=== PATIENT | male | born 2000 | race Caucasian/White ===

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

== ENCOUNTER 2019-09-23 11:42 | Inpatient (IN) | payer OTHER ==
[~2019-09-23] VITALS: Ht 165.1 cm; Wt 88.5 kg
[~2019-09-23 11:42] MED LIST: BENZTROPINE MESY1 MG PO; DIVALPROEX SOD250 M2 PO; ESCITALOPRAM10 M1 PO; OLANZAPINE20 M1 PO; SEROQUEL XR50 MG PO
[2019-09-23 11:49] VITALS: Ht 165.1 cm; Wt 88.5 kg
[2019-09-23 12:27] LABS: BASOPHIL % 0.9 % (0-2); PLATELET COUNT 279 x10^3mcL (130-400); RED CELL DISTRIBUTION WIDTH 12.5 % (11.5-14.5)
[2019-09-23 12:34] LABS: CALCIUM 9.7 mg/dL (8.5-10.1); CHLORIDE SERUM 99 mmol/L (98-107); CREATININE SERUM 1.1 mg/dL (0.7-1.3); GFR1 > 60 mL/min; GLUCOSE SERUM 123 mg/dL (74-106); POTASSIUM SERUM 3.3 mmol/L (3.5-5.1); SODIUM SERUM 136 mmol/L (136-145)
[2019-09-23 12:38] LABS: ALBUMIN 4.2 g/dL (3.4-5.0); ALKALINE PHOSPHATASE 95 U/L (46-116); ALT/SGPT 30 U/L (16-63); AST/SGOT 12 U/L (15-37); BILIRUBIN TOTAL 0.76 mg/dL (0.20-1.00); TOTAL PROTEIN, SERUM 8.2 g/dL (6.4-8.2)
--- NOTE | 2019-09-23 12:45 | NUR ---
PT BIB MOM FOR SI. PT REPORTED "I JUST DON'T WANT TO BE HERE ANYMORE." ASKED PT IF HE WANTS TO HARM HIMSELF, HE REPLIED "NO". ASKED PT IF HE HAS A PLAN TO HURRT HIMSELF HE SAID "NO". PT REPORTED FEELING "SAD." PER MOM PT "HEARS VOICES AND TALKS TO HIMSELF A LOT. HE DOES NOT ALWAYS TAKE HIS MEDS." PT IS AAOX4, PT IS CALM BUT DOES NOT ANSWER ALL QUESTIONS. PT DOES DOES NOT MAKE EYE CONTACT, DENIES HEARING ANY VOICES AT THIS TIME. NO DISTRESS NOTED, RESP E/U, LUNG CTA, SCABBED ABRASION NOTED TO RIGHT WRIST X1 DAY S/P USING HIS OWN NAIL TO SCRATCH HIMSELF PER PT. MSE COMPLETED BY MOM.
--- NOTE | 2019-09-23 13:14 | NUR ---
PSYCH TELE CONSULT IN PROGRESS AT THE BEDSIDE.
[2019-09-23 14:03] LABS: microscopic required? YES; urine erythrocyte NEGATIVE (NEGATIVE)
[2019-09-23 14:25] LABS: AMPHETAMINE QUAL UR NONE DETECTED (See below)
--- NOTE | 2019-09-23 14:55 | NUR ---
PT LAYING IN POSITION OF COMFORT, NO DISTRESS NOTED, RESP E/U. PT DENIES ANY PAIN. PT IS AAOX4. PT NOTED CALM. PT WILL NOT ANSWER QUESTIONS WHEN ASKED. PT IN VIEW OF THE NURSE STATION, SI PRECUATIONS IN PLACE.
--- NOTE | 2019-09-23 16:40 | NUR ---
PT ASKED TO CALL MOM. DIALED MOM'S NUMBER AND HANDED PHONE TO PATIENT.
--- NOTE | 2019-09-23 17:00 | NUR ---
PT NOTED SLEEPING, RESP E/U, NO DISTRESS NOTED. PT IN VIEW OF THE NURSE STATION. WILL CONT TO MONITOR.
--- NOTE | 2019-09-23 17:39 | NUR ---
No beds available during day shift. Will endorse to oncoming shift to continue assisting with bed placement
--- NOTE | 2019-09-23 18:30 | NUR ---
GAVE PT A SANDWICH AND WATER.
--- NOTE | 2019-09-23 19:10 | NUR ---
REPORT GIVEN TO SHAKIR AGUILAR WHO WILL ASSUME FURTHER CARE OF THIS PATIENT.
--- NOTE | 2019-09-24 00:04 | NUR ---
NAD NOTED - ABCS INTACT WITH RESPIRATIONS NOTED TO BE EVEN AND UNLABORED - PT RESTING WITH EYES CLOSED - PT REMAINS SAFE AND IN VIEW OF NURSING STATION.
--- NOTE | 2019-09-24 03:01 | NUR ---
NAD NOTED - ABCS INTACT WITH RESPIRATIONS NOTED TO BE EVEN AND UNLABORED - PT RESTING WITH EYES CLOSED - PT NOTED TO HAVE EATEN PART OF THE MEAL PROVIDED - PT REMAINS SAFE AND IN VIEW OF NURSING STATION.
--- NOTE | 2019-09-24 06:10 | NUR ---
PT PROVIDED ICE WATER
--- NOTE | 2019-09-24 09:02 | NUR ---
CLIENT RESTING AT THIS TIME,AWAKEN FOR ASSESSMENT & VITALS DENIES PAIN,CALM,COOPERATIVE.
--- NOTE | 2019-09-24 11:40 | NUR ---
MEDS GIVEN,TOLERATED WELL,VITAL SIGNS ARE SIGN.
--- NOTE | 2019-09-24 12:25 | NUR ---
LUNCH TRAY GIVEN.
--- NOTE | 2019-09-24 14:20 | NUR ---
CLIENT HAD LUNCH CONSUMED 85% OF MEAL,WENT BACK TO SLEEP,CALM AND COOPERATIVE
[2019-09-24 16:45] LABS: FREE T4 1.39 ng/dL (0.76-1.46); FREE THYROXINE INDEX 3.9 ug/dL (1.4-4.5); T4(THYROXINE) 10.3 ug/dL (4.7-13.3)
--- NOTE | 2019-09-24 17:05 | NUR ---
PT SEEN GETTING OOB & WALKING DOWN [place]. TOLD PT HE PASSED THE BATHROOM, PT KEPT WALKING, PT WENT TO EXIT THEN STARTED RUNNING OUT THE ER LOBBY. I TOLD SECURITY @ TENT THAT PT WAS 5150 HOLD. HE USED RADIO TO CALL PBX TO CALL JUANCARLOS TERRAZAS. PT RAN AWHILE EAST DOWN [place] ON [address] THEN STARTED WALKING HE TIRED. NOMAN RN & SHERON RN GOING BEHIND PT TO MONITOR.
--- NOTE | 2019-09-24 17:16 | NUR ---
JUANCARLOS TERRAZAS FOUND PT A MERE BLOCK DOWN [facility] LINE. SHERON RN & NOMAN RN WERE BEHIND PT & HAD HIM IN VISUALIZATION THE WHOLE TIME HE WAS OUTSIDE. PD DROVE PT BACK IN THEIR CAR, HANDCUFFED, & PT RETURNED TO BED 8. SECURITY @ BEDSIDE. PT PLACED IN 4 POINT RESTRAINTS.
--- NOTE | 2019-09-24 17:20 | NUR ---
1710 CLIENT ELOPED,SAID HE "WANTED TO GO TO THE BATHROOM" AND KEPT GOING,LEFT FACILITY,PD CALLED,PD BROUGHT PATIENT BACK TO FACILITY @ 1719 CLIENT PLACED ON RESTRAINTS UPPER EXTREMITIES.
--- NOTE | 2019-09-24 17:35 | NUR ---
ALESSANDRA CHERRY WENT TO SEE IF PT WANTED HIS DINNER. HE TOLD HIM HE WANTED TO GO UPSTAIRS & TO SHOWER. HE TOOK ONE BITE OF VEGETABLES, SPIT IT OUT, & REFUSED TO EAT ANYTHING ELSE. WRIST RESTRAINT REAPPLIED.
[2019-09-24 17:42] LABS: T3 TOTAL 0.92 ng/mL
--- NOTE | 2019-09-24 19:29 | NUR ---
PT SITTING UP IN BE RESTING QUIETLY. PT HAS NO COMPAINT AT THIS TIME. PT REMAIN VISIBLE. ALL SAFETY MEASURES MAINTAINED. PT ALERT AND ORIENTED X3
--- NOTE | 2019-09-24 21:40 | NUR ---
PT RESTRAINTS REMOVED. PT STATES HE WILL NOT ATTEMPT TO ESCAPE HOSPITAL.
--- NOTE | 2019-09-24 22:48 | NUR ---
PT IN BED SLEEPING AT THIS TIME. ALL RESTRAINTS CURRENTLY REMOVED
--- NOTE | 2019-09-24 23:23 | NUR ---
I WALKED BY PT IN ED BED 8, PT STANDING NEXT TO ZURI SHIFTING WEIGHT FROM FOOT TO FOOT. I APPROACHED PATIENT AND PATIENT ASKED TO USE RESTROOM. I ESCORTED TO THE PATIENT TO THE RESTROOM ACCROSS FROM ED TRIAGE ROOM 10. PT CONTINUED TO WALK PAST THE RESTROOM AND OUT THE EXIT DOOR. PT AMBULATED THROUGH THE LOBBY AND INTO THE PARKING LOT. WHEN THE PATIENT REACHED THE PARKING LOT HE TURNED AROUND. PT VERBALLY ENCOURAGED TO RETURN TO THE TREATMENT AREA. PT AMBULATED BACK INTO TREATMENT AREA AND RETURNED TO ED BED 8. PRIMARY RN DICK AT BEDSIDE WITH PATIENT AT THIS TIME.
--- NOTE | 2019-09-24 23:34 | NUR ---
PT RAN OUT OF FACILITY WITH HOSPITAL GOWN ON AFTER RESTRAINTS WERE REMOVED PT SEEN RUNNING UP . PD NOTIFIED.
--- NOTE | 2019-09-24 23:43 | NUR ---
PT BROUGHT BACK TO FACILITY BY PD. PT PLACED BACK IN BED WITH 2 POINT RESTRAINTS.
--- NOTE | 2019-09-25 01:30 | NUR ---
PT IN BED SLEEPING AT THIS TIME. 2 POINT RESTRAINTS ACTIVE.
--- NOTE | 2019-09-25 03:30 | NUR ---
PT RESTRAINTS REMOVED AND ASSESSED. 2 POINT RESTRAINTS REAPLLIED. FOR PATIENT'S SAFETY.
--- NOTE | 2019-09-25 05:40 | NUR ---
PT AWAKEN FOR BATHROOM BREAK AND REFRESHMENTS
--- NOTE | 2019-09-25 06:48 | NUR ---
HEARD VELCRO REMOVAL SOUND I WALKED BY BED8. PT SEEN REMOVING LEFT UPPER EXTREMITY RESTRAINT WITH HIS TEETH. INSTRUCTED PT TO STOP REMOVING HIS RESTRAINTS. PT LAID BACK DOWN. PT LEFT RESTRAINT PLACED BACK ON. PT COOPERATIVE WHEN PLACING RESTRAINT BACK ON. PRIMARY RN DICK AT BEDSIDE WELL, EDUCATING PT REGARDING RESTRAINTS. PT REMAINS QUIET AT THIS TIME.
--- NOTE | 2019-09-25 07:45 | NUR ---
FIRST CONTACT WITH PT. FOUND SLEEPING IN BED. BILATERAL VELCROVE RESTRAINTS INTACT. HAND WITH GOOD CIRCULATION.
--- NOTE | 2019-09-25 08:35 | NUR ---
SPOKE WITH NURSING PLAYER PIANO TECHNICIAN, NO SITTERS AVAILBLE TO SIT WITH PT ON 2ND FLOOR.
--- NOTE | 2019-09-25 09:40 | NUR ---
medicated as ordered with Liz rivera. pt is quiet. non combative at this time.
--- NOTE | 2019-09-25 11:00 | NUR ---
CONTINUES TO SLEEP SOUNDLY AT THIS TIME RESPS NON LABORED
--- NOTE | 2019-09-25 12:42 | NUR ---
STILL NON VERBAL. AMONIA INHALANT USED, PT RESPONDED AND OPENED EYES. FELL BACK TO SLEEP. CHARGE NURSE AWARE.
--- NOTE | 2019-09-25 12:52 | NUR ---
FOOD TRAY BROUGHT TO PT, BUT DIFFICULT TO AROUSE, AMMONIA INHALANT USED PT DID WAKE UP BUT HE ISNT COOPERATIVE, I OFFERED TO HAVE HIM FED BY JO ANN MORALES BUT PT WOULD NOT OPEN HIS MOUTH, HIS EYES WERE OPEN, PT REMAINS ON CRISTAL HAND RESTRAINTS, I REMOVED BOTH HAND RESTRAINTS TO CHECK SKINS AND I NOTICED AN ABRASION NOTED ON RIGHT INNER WRSIT. I INFORMED DR HUMPHREY ORDERS TO CLEAN IT AND APPLY A DRY BANDAIDE.
--- NOTE | 2019-09-25 13:17 | NUR ---
continues to sleep, awakened for lunch.
--- NOTE | 2019-09-25 13:21 | NUR ---
took a few spoonfuls of soup and half of apple juice. (spoon fed).
--- NOTE | 2019-09-25 13:25 | NUR ---
mental health doctor here and saw pt.
--- NOTE | 2019-09-25 14:51 | NUR ---
VELCROVE WRIST RESTRAINTS REMOVED, WAS RECEPTIVE TO WALKING TO REST ROOM AND GIVING HIMSELF A SMALL SPONGE BATH. GAIT WAS STEADY. UPON RETURNING OFFERED JUICE AND H2O, DID NOT WANT ANY.
--- NOTE | 2019-09-25 14:56 | NUR ---
FOUND PT TRYING TO REMOVE VELCROVE WRIST RESTRAINTS WITH MOUTH. PT TALKED DOWN. STATED: I WANT TO VISIT MY MOM. EXPLAINED TO PT THAT DUE TO THE PANDEMIC, VISITORS AREN'T ALLOWED.
--- NOTE | 2019-09-25 15:01 | NUR ---
SPOKE WITH NURSING NON LICENSED OPERATOR WHO STATES THAT AT 7PM, THERE WAS A SITTER AVAIL- ABLE.
--- NOTE | 2019-09-25 15:08 | NUR ---
PT SELF REMOVED RESTRAINTS, TRIED TO LEAVE, WAS PHYSICALLY STOPPED. WAS PHYSI CALLLY STOPPED. FORCED BACK TO ZURI. REMINDED HIS MOTHER COULDN'T VISIT DUE TO THE PANDEMIC
--- NOTE | 2019-09-25 15:50 | NUR ---
VELCROVE WRIST RESTRAINTS ON. HAS GOOD CIRCULATION. SLEEPS. LOW KEYED AT THIS TIME
--- NOTE | 2019-09-25 16:05 | NUR ---
GREY KEYED A THIS TIME. STARES OUT. NON VERBAL.
--- NOTE | 2019-09-25 18:56 | NUR ---
REMAINS LOW KEYED AT THIS TIME. LEFT UNDISTURBED.
--- NOTE | 2019-09-25 18:59 | NUR ---
REPORT GIVEN TO TRAIN CALLER STAFF. REMAINS LOW OAKES
--- NOTE | 2019-09-25 19:03 | NUR ---
REPORT RECEIVED FROM LAUREN MACIEL.
[2019-09-25] MEDS ORDERED: SERTRALINE H20 MG/ML (19:12)
[2019-09-25] MEDS ORDERED: ZIPRASIDONE HCL40 M1 (19:12)
[2019-09-25] MEDS ORDERED: DEPAKOTE SPRIN125 MG (19:12)
[2019-09-25] MEDS ORDERED: BENZTROPINE ME0.5 MG (19:12)
--- NOTE | 2019-09-25 19:18 | NUR ---
PATIENT IN GURNEY, IN BILATERAL UPPER EXTREMITY SOFT RESTRAINTS. PATIENT IS RESTLESS, ATTEMPTING TO GET OUT OF GURNEY. PATIENT RE-ORIENTED, ENVIRONMENTAL STIMULUS DECREASED. PMSC INTACT TO BILATERAL UPPER EXTREMITIES. PT OFFERED TOILETING, NAD NOTED. PT REMAINS IN DIRECT SIGHT OF NURSES'S STATION FOR SAFETY.
--- NOTE | 2019-09-25 19:36 | NUR ---
RESTRAINT RENEWAL PLACED IN CHART.
--- NOTE | 2019-09-25 20:34 | NUR ---
PATIENT REQUESTING TO USE THE RESTROOM, PROVIDED WITH URINAL AND REMOVED RESTRAINTS FOR BATHROOM PRIVELEGES BY JO ANN MORALES. PATIENT UNABLE TO URINATE AT THIS TIME. WILL RE-ASSESS.
--- NOTE | 2019-09-25 20:42 | NUR ---
REPORT CALLED TO LAUREN ARAYA TO ASSUME CARE OF PT.
[2019-09-25 21:00] VITALS: BP 139/86
--- NOTE | 2019-09-25 21:43 | NUR ---
RECEIVED PT FROM ER, PT ADMIT FOR 5150 HOLD, SUICIDAL IDEATION. PT IS ALERT BUT MUTE. REFUSED TO TALK. REFUSE TO FOLLOW COMMAND. REFUSED ANSWER ALL THE QUESTIONS. PT ONLY TALKED " I WANT TO WATER'. THEN REFUSED TO TALK. LUNG SOUND CLEAR BILATERAL, NO COUGH, NO SOB. BOWEL SOUND PRESENT ALL 4 QUADRANTS, NO DISTENTION, NO TENDER. PEDAL PULSE PRESENT BOTH FEET, NO EDEMA, PT REFUSED IV. SITTER AT BED SITE. ALL ADLS ASSIST, ALL NEED MET, CALL LIGHT IN REACH, WILL CONTINUE TO MONITOR.
--- NOTE | 2019-09-25 21:50 | NUR ---
RECEIVED REPORT FROM BENNY PEREZ RN. PATIENT IS CURRENTLY CALM, BUE RESTRAINTS REMOVED FROM PATIENT, 1:[address]
--- NOTE | 2019-09-25 22:05 | NUR ---
PATIENT RESTING IN BED, CALM, ALERT BUT MUTE, REFUSES TO TALK. BREATHING E/U, ON ROOM AIR. SHOWS NO SIGN OF PAIN OR DISTRESS. ASKED PATIENT IF THEY WOULD LIKE TO TAKE THEIR SCHEDULED GEODON AND DEPAKOTE, PATIENT NODDED, WILL GIVE SCHEDULED MEDICATIONS PER EMAR. CALL LIGHT WITHIN REACH, BED IN LOWEST POSITION. WILL CONTINUE TO MONITOR.
--- NOTE | 2019-09-26 00:35 | NUR ---
PATIENT RESTING IN BED WITH EYES CLOSED. EVEN CHEST RISE AND FALL. SHOWS NO SIGN OF PAIN OR DISTRESS. CALL LIGHT WITHIN REACH, SITTER IN PLACE, WILL CONTINUE TO MONITOR.
--- NOTE | 2019-09-26 05:09 | NUR ---
There still no beds available at any of the designted facilities. Will endorse to incoming shift to seek further placement during their shift. Patients 5150 is set to later today at 16:01
[2019-09-26 06:30] VITALS: BP 134/92
--- NOTE | 2019-09-26 07:05 | NUR ---
RECIEVED PT RESTING IN BED WITH NO C/O PAIN OR DISTRESS. PT ON 5150 HOLD WITH SITTER AT BEDSIDE. PT ALERT BUT REFUSES TO RESPOND VERBALLY. LUNGS CTAB WITH NO SOB NOTED. NO IV ACCESS D/T PT REFUSAL, MD AWARE. SAFETY PRECAUTIONS IN PLACE, CALL LIGHT WITHN REACH, WILL MONITOR.
--- NOTE | 2019-09-26 07:18 | NUR ---
PATIENT RESTING IN BED WITH EYES CLOSED. EVEN CHEST RISE AND FALL. SHOWS NO SIGN OF PAIN OR DISTRESS. NO SIGNIFICANT CHANGES DURING SHIFT, CALL LIGHT WTIHIN REACH, 1:1 SITTER AND SAFETY PRECAUTIONS MAINTAINED THROUGHOUT SHIFT.
[2019-09-26 08:00] VITALS: BP 113/69
--- NOTE | 2019-09-26 11:50 | NUR ---
TELEPHONE ORDER RECIEVED FROM LIDA RICE FOR COVID TEST ON PT. TEST FOR TRANSFER TO PSYCH FACILITY, NO ISOLATION NEEDED. ORDER NOTED AND CARRIED OUT.
--- NOTE | 2019-09-26 12:01 | NUR ---
COVID-19 SPECIMEN TAKEN AND TURNED IN TO LAB.
--- NOTE | 2019-09-26 13:54 | NUR ---
PT RESTING IN BED WITH NO C/O PAIN OR DISTRESS. SITTER AT BEDSIDE. SAFETY PRECAUTIONS IN PLACE, CALL LIGHT WITHIN REACH, WILL MONITOR.
[2019-09-26 14:37] VITALS: BP 126/85
--- NOTE | 2019-09-26 14:47 | NUR ---
AT THIS TIME THERE ARE NO NEW UPDATES FOR BED PLACEMENT WILL CONT TO MONITOR AND ASSIST IN PLACEMENT
[2019-09-26 18:03] VITALS: BP 139/99
--- NOTE | 2019-09-26 18:29 | NUR ---
PT RESTING IN BED WITH NO C/O PAIN OR DISTRESS. PT ON 5150 HOLD WITH SITTER AT BEDSIDE. PT ALERT BUT REFUSES TO RESPOND VERBALLY. REFUSED TO EAT AND ALL ADL'S, DR PETTY MADE AWARE. LUNGS CTAB WITH NO SOB NOTED. NO IV ACCESS D/T PT REFUSAL, MD AWARE. SAFETY PRECAUTIONS IN PLACE, CALL LIGHT WITHN REACH, WILL ENDORSE CARE TO NIGHT NURSE.
--- NOTE | 2019-09-26 19:20 | NUR ---
RECEIVED PATIENT FROM DAY NURSE. MED-SURG PATIENT. PATIENT RESTING IN BED, ALERT, ONLY SELECTIVELY SPEAKS "I WANT TO CLEAN MY ARMS" OR "I WANT TO LOWER MY HEAD ON THE BED". CURRENTLY ON 5151 HOLD, ASKED PATIENT IF HE CURRENTLY HAS ANY SUICIDAL THOUGHTS OR THOUGHTS OF SELF-HARM AND HE SHOOK HIS HEAD IN RESPONSE TO BOTH QUESTIONS. BREATHING E/U, ON ROOM AIR. ABD SOFT AND ROUND, POOR APPETITE, OFFERED SANDWICHES AND OTHER SNACKS, PATIENT REFUSED. AMBULATORY. NO EDEMA NOTED. NO IV ACCESS AT THIS TIME, PATIENT REFUSED IV ACCESS AGAIN. DENIES PAIN. CALL LIGHT WITHIN REACH, BED IN LOWEST POSITION. WILL CONTINUE TO MONITOR.
--- NOTE | 2019-09-26 19:28 | NUR ---
[facility] hourly shift to continue actively working on finding placement for this pt. Will contact with any updates on placement. No openings per day shift report.
--- NOTE | 2019-09-26 20:00 | NUR ---
PATIENT STATED THAT THEY WISH TO "CLEAN THEIR ARMS", GAVE THE PATIENT RODRIGUEZ CLEANSING WIPES AND MILLING PLANER OPERATOR ASSISTED PATIENT.
[2019-09-26 21:55] VITALS: BP 126/83
--- NOTE | 2019-09-26 22:01 | NUR ---
PATIENT RESTING IN BED, BREATHING E/U, OFFERED SANDWICH AND MARCO CRACKERS TO PATIENT, PATIENT DID NOT SPEAK, PLACED SANDWICH AND MARCO CRACKAERS @ BEDSIDE IN CASE PATIENT WISHES TO EAT PATIENT ONLY ATE A SMALL PORTION OF DINNER. CALL LIGHT WITHIN REACH, WILL CONTINUE TO MONITOR.
--- NOTE | 2019-09-27 00:10 | NUR ---
PATIENT RESTING IN BED, WITH EYES CLOSED. EVEN CHEST RISE AND FALL. SHOWS NO SIGN OF PAIN OR DISTRESS. CALL LIGHT WITHIN REACH, SITTER IN PLACE. WILL CONTINUE TO MONITOR.
--- NOTE | 2019-09-27 00:45 | NUR ---
Followup calls to the following facilities regarding placement: [facility], [facility], [facility], [facility], [facility] No openings at this time. Will continue to follow up.
--- NOTE | 2019-09-27 06:11 | NUR ---
PATIENT RESTING IN BED WTIH EYES CLOSED. EVEN CHEST RISE AND FALL. SHOWS NO SIGN OF PAIN OR DISTRESS. NO SIGNIFICANT CHANGES DURING SHIFT, [address], ALL NEEDS MET, SAFETY PRECAUTIONS AND SITTER IN PLACE THROUGHOUT SHIFT.
[2019-09-27 06:35] VITALS: BP 122/77
--- NOTE | 2019-09-27 18:30 | NUR ---
Called facility spoke with Chandrika/RN she will fax updated hold. Throughout the day assessing bed placement there has been no bed availability. [facility]/ Sofia - No beds, they have information Jean Low/ Sena - No beds SAIDA/ Zack - Not today, has information JULIANNA/ Anitha Juarez we are full but we have the information Will keep facility updated with any information. Will endorse to next shift.
--- NOTE | 2019-09-27 18:43 | NUR ---
PT RESTING IN BED WITH NO C/O PAIN OR DISTRESS. PT ON 5150 HOLD WITH SITTER AT BEDSIDE. PT ALERT BUT REFUSES TO RESPOND VERBALLY. REFUSED TO EAT/DRINK AND ALL ADL'S ALL SHIFT, DR PETTY AND INSIDE PARTS SALES MADE AWARE. LUNGS CTAB WITH NO SOB NOTED. NO IV ACCESS D/T PT REFUSAL, MD AWARE. SAFETY PRECAUTIONS IN PLACE, CALL LIGHT WITHN REACH, WILL ENDORSE CARE TO NIGHT NURSE.
--- NOTE | 2019-09-27 19:25 | NUR ---
RECEIVED PATIENT FROM DAY NURSE. MED-SURG PATIENT. PATIENT RESTING IN BED, ALERT, CALM AND MUTE. CURRENTLY ON 5150 HOLD, WHICH WAS RENEWED YESTERDAY AND PLACED IN PATIENT CHART, SITTER IN PLACE, WHEN ASKED IF THE PATIENT HAD ANY THOUGHTS OF SUICIDE OR SELF-HARM, PATIENT SHOOK HIS HEAD. BREATHING E/U, ON ROOM AIR. ABD SOFT AND ROUND, DAY NURSE AND SITTER STATED THAT PATIENT HAS NOT EATEN ANYTHING FROM MEAL TRAYS AND ONLY DRANK WATER AND MILK DURING THE DAY, SANDWICH PROVIDED @ BEDSIDE. NO EDEMA NOTED. NO IV ACCESS @ THIS TIME, PATIENT REFUSED. WHEN ASKED IF HE FEELING PAIN, PATIENT SHOOK HIS HEAD. CALL LIGHT WITHIN REACH, BED IN LOWEST POSITION. WILL CONTINUE TO MONITOR.
[2019-09-27 22:02] VITALS: BP 131/86
--- NOTE | 2019-09-27 22:09 | NUR ---
DR. CORREA MADE AWARE THAT PATIENT'S REFUSAL TO EAT THE MEAL TRAYS DURING THE DAY AND THAT PATIENT HAS ONLY DRANK WATER AND MILK. HE STATED TO CHECK PATIENT'S BLOOD GLUCOSE.
--- NOTE | 2019-09-27 23:02 | NUR ---
PATIENT REFUSED ACCUCHECK. PATIENT RESTING IN BED, WITH EYES CLOSED. SHOWS NO SIGN OF PAIN OR DISTRESS. WILL NOTIFY DR. CORREA. CALL LIGHT WITHIN REACH, WILL CONTINUE TO MONITOR.
--- NOTE | 2019-09-28 00:10 | NUR ---
PATIENT RESTING IN BED WITH EYES CLOSED. EVEN CHEST RISE AND FALL. SHOWS NO SIGN OF PAIN OR DISTRESS. SITTER IN PLACE. CALL LIGHT WITHIN REACH, WILL CONTINUE TO MONITOR.
[2019-09-28 05:30] VITALS: BP 119/73
--- NOTE | 2019-09-28 06:00 | NUR ---
PATIENT RESTING IN BED WITH EYES CLOSED. EVEN CHEST RISE AND FALL. SHOWS NO SIGN OF PAIN OR DISTRESS. COVID-19 TEST RESULT NEGATIVE, PENDING PSYCH FACILITY PLACEMENT, 5150 HOLD RENEWED ON 09/25 1829, WILL ENDORSE CARE TO DAY NURSE. CALL LIGHT WITHIN REACH, 1:1 SITTER AND SAFETY PRECAUTIONS MAINTAINED THROUGHOUT SHIFT.
--- NOTE | 2019-09-28 07:30 | NUR ---
PT SITTING UP IN BED. SLEEPING COMFORTABLY AT THIS TIME. NO DISTRESS NOTED. SITTER AT BEDSIDE. [address] WILL CONTINUE TO MONITOR. CALL LIGHT IN REACH. BED IN LOWEST POSITION.
--- NOTE | 2019-09-28 07:48 | NUR ---
RECEIVED PT FROM FAMILY PRACTITIONER RN. ALERT, PT DOES NOT RESPOND TO QUESTIONS, PT NODS TO YES OR NO QUESTIONS. MED-SURG. NO ACUTE RESP DISTRESS NOTED ON RA. WHEN ASKED IF PAIN, PT NODDED NO. PT ASKED IF HAVING ANY THOUGHTS OF HARMING HIMSELF, PT NODDED NO, PT ASKED IF HAVING ANY THOUGHTS OF HARMING OTHERS, PT NODDED NO. BREAKFAST TRAY IN FRONT OF PT, PT NOT EATING, OFFERED PT DIFFERENT BREAKFAST, PT DID NOT RESPOND. PT ONLY DRINKING ORANGE JUICE AND WATER. SITTER AT BEDSIDE, [address] SAFETY MAINTAINED. WILL CONTINUE TO MONITOR. CALL LIGHT IN REACH. BED IN LOWEST POSITION.
[2019-09-28 08:42] VITALS: BP 125/85
--- NOTE | 2019-09-28 08:54 | NUR ---
PT SITTING UP IN BED. OPENS EYES TO VERBAL STIMULI. GIVEN PO MEDS. TOLERATED WELL. PT ONLY HAVE ORANGE JUICE FOR BREAKFAST. ASKED PT IF HE WANTED TO EAT, PT NODDED NO, ASKED IF HE WOULD LIKE TRAY TAKEN AWAY, PT NODDED YES. OFFERED PT MORE SNACKS, PT NODDED NO. SITTER AT BEDSIDE. WILL CONTINUE TO MONITOR. CALL LIGHT IN REACH. BED IN LOWEST POSITION.
[2019-09-28 12:00] VITALS: BP 127/84
--- NOTE | 2019-09-28 12:18 | NUR ---
Called the following facilities: [facility] s/w [place] no beds [facility] s/w [place]la no beds [facility] no answer but packet faxed [facility] s/w [facility], packet faxed
--- NOTE | 2019-09-28 15:30 | NUR ---
[facility] [place] no beds [facility] no beds
[2019-09-28 17:35] VITALS: BP 142/90
[2019-09-28 17:51] VITALS: BP 127/65
--- NOTE | 2019-09-28 18:47 | NUR ---
PT RESTING COMFORTABLY THROUGHOUT MY SHIFT. ALL NEEDS ARE MET AT THIS TIME. WILL ENDORSE CARE TO ONCOMING NURSE FOR CONTINUTIY OF CARE.
[2019-09-28 19:25] VITALS: BP 140/85
--- NOTE | 2019-09-28 19:25 | NUR ---
RECEIVED PT AWAKE ,REFUSED TO TALK AND ANSWERS ANY QUESTION AT THIS TIME.ALLOWED NURSE TO TAKE HIS V/S.NO S/S OF PAIN OR DISCOMFORT.BP 140/85 [facility],HR 111.ON 1;1 SITTER.REPORTS OF POOR APPETITE ONLY DRINKS WATER AND JUICE.WILL CONTINUE TO MONITOR.
--- NOTE | 2019-09-29 04:38 | NUR ---
PT SLEPT WELL WITH SITTER AT BEDSIDE.CONTINUED TO REFUSED TO TALK BUT KNODS WHEN ASKED YES/NO QUESTIONS.CONSTANLY ENCOURAGED TO VERBALIZED FEELINGS/THOUGHT.ALL NEEDS MET.WILL CONTINUE TO MONITOR.
[2019-09-29 05:37] VITALS: BP 125/76
--- NOTE | 2019-09-29 06:44 | NUR ---
[facility] day shift to continue actively looking for placement for this pt. Will followup with potential facilities today. Will contact with any updates. No openings per manufacturing supervisor 2nd shift report.
--- NOTE | 2019-09-29 08:15 | NUR ---
RECEIVED REPORT FROM JULIO SIBLEY RN AND I ASSUMED CARE. PT ASLEEP BUT AROUSABLE WITH VERBAL STIMULATION. I NOTED PT IS WITHDRAWN AND DEPRESSED LIMITED TO HIS CONVERSATION BUT HE IS COOPERATIVE WITH CARE. ALERT/ORIENTED X4. RESP.EVEN AND UNLABORED. DENIES SOB. DENIES PAIN. DENIES N/V. I OFFERED HIS BREAKFAST AND HE JUST SAID NOT READY FOR IT YET. IV SITE INTACT AND NO SIGNS OF INFILTRATION NOTED. BARBER WELL DENIES DIFF. VOIDING FREELY DENIES DIFF. SITTER AT THE BEDSIDE. WILL CONT TO MONITOR. CALL LIGHT W/IN REACH. SAFETY MEASURES IN PLACED.
[2019-09-29 11:25] VITALS: BP 109/73
--- NOTE | 2019-09-29 11:58 | NUR ---
DID SAFETY CHECK AND NOTED PT AWAKE. STARTED CONVERSATION WITH HIM ABOUT HIS MEAL PREFERENCE SINCE HE HASN'T TOUCH HIS BREAKFAST. I GAVE HIM SOME OPTIONS TO WHAT IS AVAILABLE IN THE DIETARY AND HE REQUESTED CHEESE BURGER. HE TOOK HIS MEDICATION AND REQUESTED APPLE JUICE AND PUDDING. WILL CONT TO MONITOR. SITTER AT THE BEDSIDE.
[2019-09-29 14:16] VITALS: BP 135/83
--- NOTE | 2019-09-29 16:42 | NUR ---
Psych referral and covid results faxed to [facility] for review and potential placement.
--- NOTE | 2019-09-29 17:10 | NUR ---
RECEIVED A CALL FROM KIARRA(INTAKE) FROM [facility], PT ACCEPTED AT THEIR HOSP AND BED IS AVAILABLE. PT GOING TO [facility] ADDRESS: [address] [place] [address], [place] [id number] [id number] BED A ACCEPTING MD: [phone] CALLED AND SPOKE TO KAYE(CASE MANAGEMENT) AND MADE HER AWARE OF ABOVE. NOTIFIED MOTHER MOHINDER OF ABOVE AND AGREEABLE WITH TRANSFER.
[2019-09-29 17:34] VITALS: BP 135/83
--- NOTE | 2019-09-29 18:05 | NUR ---
CALLED TO [facility] PSYCH TO GIVE REPORT AND SPOKE TO LARRY AGUILAR AND GAVE HER DETAILED REPORT. LARRY AGUILAR REQUESTED THAT 5150 NEED TO BE UPDATED SINCE THEY DON'T HAVE A PSYCH MD THERE TO UPDATE IT. CALLED TO AND MADE HIM AWARE OF ABOVE AND HE SAID HE WILL BE COMING IN TO UPDATE BOTH 5150 HOLD. AWAITING FOR TRANSPORTATION TO BE ARRANGED BY [facility] CASE MANAGEMENT.
--- NOTE | 2019-09-29 20:20 | NUR ---
[facility] AT BEDSIDE TO TRANSPORT PATIENT. PATIENT IN NO ACUTE DISTRESS. PATIENT COOPERATIVE WITH TRANSPORTATION. ALL BELONGINGS WITH PATIENT. NO IV ACCESS. NO TELE MONITOR. ALL QUESTIONS ADDRESSED. PATIENT LEFT THE FLOOR WITH NO ACUTE DISTRESS NOTED.
== END 2019-09-29 20:10 | DRG 753 ==
LOC: ED 11:42 → MU 09-24 14:20
PROVIDERS: Emergency Medicine; ADMIT Student in an Organized Health Care Education/Training Program; ATTEND Student in an Organized Health Care Education/Training Program
DX: F31.5 Bipolar disorder, current episode depressed, severe, with psychotic features (principal); R45.851 Suicidal ideations; F20.9 Schizophrenia, unspecified; F31.9 Bipolar disorder, unspecified; Z20.828 Contact with and (suspected) exposure to other viral communicable diseases; F90.9 Attention-deficit hyperactivity disorder, unspecified type; Z83.2 Family history of diseases of the blood and blood-forming organs and certain disorders involving the immune mechanism; F84.0 Autistic disorder
CPT/HCPCS: 84439; G0378; J3486; U0003-CS